=== PATIENT | female | born 1945 | race African-American/Black ===

== ENCOUNTER 2016-12-30 14:24 | Emergency (ER) | payer MEDICARE ==
[2016-12-30] MEDS ORDERED: ATOR10TA69 PO (14:44)
[2016-12-30] MEDS ORDERED: METF500T4 PO (14:44)
[2016-12-30] MEDS ORDERED: DONE5TAB33 PO (14:44)
[2016-12-30] MEDS ORDERED: ZET10 PO (14:44)
[2016-12-30] MEDS ORDERED: TOLT4CAP PO (14:44)
[2016-12-30] MEDS ORDERED: ASPI-1159 PO (14:44)
[2016-12-30] MEDS ORDERED: FURO40TA5 PO (14:44)
[2016-12-30] MEDS ORDERED: LOSA50TA20 PO (14:44)
[2016-12-30] MEDS ORDERED: SERT25TA74 PO (14:44)
[2016-12-30 15:23] LABS: CHLORIDE 103 mEq/L (98-107); PROTHROMBIN TIME 10.5 sec (9.4-11.6)
[2016-12-30 15:24] LABS: BASOPHILS % 0.3 % (0.0-2.0); EOSINOPHILS % 1.4 % (0.0-5.0); HEMATOCRIT. 38.5 % (36.0-48.0); HEMOGLOBIN. 12.4 g/dL (12.0-16.0); LYMPHOCYTES % 32.5 % (20.0-50.0); MEAN CORPUSCULAR HEMOGLOBIN 26.8 pg (28.0-32.0); MEAN CORPUSCULAR VOLUME 83.2 fL (81.0-99.0); MEAN PLATELET VOLUME 8.1 fl (7.4-10.4); MONOCYTES % 7.1 % (2.0-8.0); NEUTROPHILS % 58.7 % (40.0-76.0); PLATELET 216 x1000/uL (130-400); RED BLOOD CELL COUNT 4.62 mill/uL (4.2-5.4); RED CELL DISTRIBUTION WIDTH 14.5 % (11.6-14.6)
[2016-12-30 15:33] LABS: CLARITY URINE CLEAR (CLEAR); COLOR URINE YELLOW (YELLOW); GLUCOSE URINE NEGATIVE (NEGATIVE); KETONES URINE NEGATIVE (NEGATIVE); LEUKOCYTE ESTERASE URINE TRACE (NEGATIVE); NITRITE URINE POSITIVE (NEGATIVE); OCCULT BLOOD URINE NEGATIVE (NEGATIVE); PROTEIN URINE NEGATIVE (NEGATIVE); SPECIFIC GRAVITY URINE 1.017 (1.005-1.030); UROBILINOGEN URINE 0.2 E.U./dL (0.2-1.0)
[2016-12-30 15:33] LABS: CARBON DIOXIDE 25 mEq/L (21-32); ETHANOL BLOOD < 10 mg/dL
[2016-12-30 15:35] LABS: TROPONIN I < 0.02 ng/mL (0.00-0.04)
[2016-12-30 15:46] LABS: *AMPHETAMINES SCREEN URINE NEGATIVE (NEGATIVE); *BARBITURATES SCREEN URINE NEGATIVE (NEGATIVE); *BENZODIAZEPINES SCREEN URINE NEGATIVE (NEGATIVE); *COCAINE SCREEN URINE NEGATIVE (NEGATIVE); CANNABINOID URINE SCREEN NEGATIVE (NEGATIVE); METHADONE URINE SCREEN NEGATIVE (NEGATIVE); OPIATES URINE SCREEN NEGATIVE (NEGATIVE); PHENCYCLIDINE URINE SCREEN NEGATIVE (NEGATIVE)
[2016-12-30] MEDS ORDERED: CEPHALEXIN 500MG CAPSULE PO ONE (18:45)
[2016-12-30 19:03] VITALS: BP 126/66
== END 2016-12-30 19:06 | disposition home or self-care (01) ==
LOC: ER 14:24
DX: R55 Syncope and collapse (principal); N39.0 Urinary tract infection, site not specified; I69.354 Hemiplegia and hemiparesis following cerebral infarction affecting left non-dominant side; E11.9 Type 2 diabetes mellitus without complications; Z79.82 Long term (current) use of aspirin
CPT/HCPCS: 36415; 70450; 71010; 80053; 80305; 81001; 82962; 83880; 84484; 85025; 85610; 93005; 99285; G0482